=== PATIENT | female | born 1960 | race Caucasian/White ===

== ENCOUNTER 2017-09-17 13:59 | Inpatient (IN) | payer BC ==
[~2017-09-17] VITALS: Ht 172.7 cm; Wt 82.7 kg
--- NOTE | ~2017-09-17 | CN ---
PATIENT NAME:MONIQUE HAWK MEDICAL RECORD: [id number] : 62 LOCATION:D. D.2126 ADMIT DATE: 09/17/17 ACCOUNT: [id number] CONSULTING PHYSICIAN: ALLYSON OTTO MD REFERRING PHYSICIAN: ION HINDS MD DATE OF CONSULTATION: 09/18/2017 CARDIOLOGY CONSULT DIAGNOSES: 1. Palpitations. 2. PVCs - dysrhythmia. 3. Anemia. 4. Hypotension. HISTORY: Mrs. Hawk presents with shortness of breath and palpitations. She was found to be markedly anemic with hemoglobin in the 7 range. Etiology of the anemia is unknown, felt to be possibly GI. She has received 2 units of blood. She feels fine now. Her monitor was only with occasional PVCs. She was scheduled to see us on for the dysrhythmia. She has had no further PVCs since replacement of the blood. PHYSICAL EXAMINATION: GENERAL APPEARANCE: Well-nourished, well-developed, appears stated age. Level of distress, comfortable. PSYCHIATRIC: Mental status, alert, normal affect. Orientation, oriented to time, place and person. EYES: Lids and conjunctiva, noninjected. No discharge, no pallor. ENT: Lips, teeth, gums, normal dentition. Oropharynx, no cyanosis, no pallor. NECK: Carotid arteries, bilateral normal upstroke, no bruits, no thrills. JUGULAR VEINS: No jugular venous pressure or distention. CERVICAL LYMPH NODES: Nontender, nonenlarged. THYROID: Not enlarged. Nontender. No nodules. LUNGS: Respiratory effort, unlabored. CHEST: Normal curvature. No thoracic deformity. No chest wall tenderness. Percussion, resonant. Auscultation, clear. No wheezes, no rales, no rhonchi. CARDIOVASCULAR: Precordial exam, nondisplaced. No heaves or pericardial thrills. Rate and rhythm, regular. Heart sounds, normal S1, normal S2. No S3, no gallop, no rub. Systolic murmur, not heard. Diastolic murmur, not heard. EXTREMITIES: No cyanosis, no edema. Peripheral pulses, full and equal in all extremities, except as noted. No bruits appreciated. ABDOMEN: Soft, nondistended. Normal aorta. No bruit. Nontender. No masses. Liver, nontender, no hepatomegaly. Spleen, nontender, no splenomegaly. MUSCULOSKELETAL: No joint tenderness. No joint swelling. No erythema. NEUROLOGICAL: Normal gait, normal strength, normal tone. SKIN: Warm and dry. At this time, we will get an echocardiogram. Most likely, this is all secondary to the anemia. From a cardiac standpoint, no other workup should be necessary other than the echo unless she has further dysrhythmia or the echo shows structural abnormalities. TRANSINT:[id number] Voice Confirmation ID: [id number] DOCUMENT ID: [id number] CONSULT REPORT [id number] MONIQUE HAWK JEFFREY MD CC: [id number] DICTATION DATE: 09/18/17 1027 CLIENT ADVOCATE: 09/18/17 1335 ADM IN [facility] [address] [place] [address]
--- NOTE | ~2017-09-17 | EC ---
PATIENT:MONIQUE DUMAS DATE OF SERVICE: 09/17/17 SEX: F MEDICAL RECORD: [id number] DATE OF : 62 LOCATION:D.M2 D.212 AGE OF PATIENT: 57 ADMISSION DATE: 09/17/17 REFERRING PHYSICIAN: INTERPRETING PHYSICIAN: ALLYSON FREDERICK MD ECHOCARDIOGRAM REPORT ECHO CHARGES 4 ECHO COMPLETE CLINICAL DIAGNOSIS: PVC'S ECHOCARDIOGRAPHIC MEASUREMENTS (adult normal given) AC root (d.<3.7cm) 3.0 cm LV Septum d (<1.2 cm> 1.2 cm Valve Excursion 1.8 cm LV Septum (systole) 1.6 cm Left Atria (s.<4.0cm> 3.5 cm LVPW d(<1.2cm) 1.2 cm RV (d.<2.3cm) 2.7 cm LVPW (sytole) 2.0 cm LV diastole(<5.6CM) 5.5 cm MV E-F(>70mm/sec) cm LV systole 3.1 cm LVOT Diameter 1.9 cm MV exc.(>10mm) cm Est.ejection fraction (50-75%) % Pericardial Effusion N DOPPLER: LVIT cm/sec A 81.0 cm/sec E 58.0 cm/sec LA cm/sec RVSP 31.0 mmHg LVOT 153 cm/sec AOP1/2T m/s Asc. Ao 209 cm/sec RVOT 89.0 cm/sec RA cm/sec PA 126 cm/sec AV Gradient Peak 17.4 mmHg AV Mean 10.0 mmHg AV Area 2.1 cm MV Gradient Peak 7.1 mmHg MV Mean 3.1 mmHg MV Area cm COMMENTS: Bicycle Assembler: 1 MOSHE VILLAGOMEZOE Lead Bi Developer: 1 Dr. Frederick TAPE# PACS DATE OF SERVICE: 09/18/2017 ECHOCARDIOGRAM FINDINGS: 1. Left ventricular chamber size is within normal limits. Left ventricular systolic function is normal. Overall ejection fraction estimated at 65%. 2. Left atrium, right atrium, and right ventricular chamber sizes are within normal limits. 3. Valvular structures have normal structure and motion. ECHOCARDIOGRAM REPORT [id number] MONIQUE DUMAS 4. Doppler interrogation reveals trace mitral regurgitation, trace tricuspid regurgitation. No other valvular insufficiency or stenosis and pulmonary systolic pressure is normal estimated at 31 mmHg. 5. No evidence of pericardial effusion or left ventricular thrombus. TRANSINT:[id number] Voice Confirmation ID: [id number] DOCUMENT ID: [id number] ALLYSON FREDERICK MD CC: [id number] DICTATION DATE: 09/19/17919 GROCERY SPECIALIST: 09/19/17 1109 DIS IN 09/18/17 [facility] [address] [place] [id number]
[2017-09-17 15:00] LABS: BASOPHILS 0.6 % (0-2); EOSINOPHILS 1.6 % (0-7); HEMATOCRIT 25.8 % (36.0-48.0); HEMOGLOBIN 8.2 g/dL (12-16); IMMATURE GRANULOCYTES 0.3 % (0-5); LYMPHOCYTES 14.1 % (15-50); MCH 28.3 pg (26.0-34.0); MCHC 31.8 g/dL (31.0-37.0); MEAN PLATELET VOLUME 9.5 fL (7.4-10.4); MONOCYTES 8.2 % (2-11); NEUTROPHILS 75.2 % (40-80); PLATELET COUNT 506 10x3/uL (130-400); WBC 10.8 10x3/uL (4.8-10.8)
[2017-09-17 15:13] LABS: INR 0.93 (0.85-1.17); PROTIME 12.1 SECONDS (11.6-15.0)
[2017-09-17 15:14] LABS: D-DIMER-QUANTITATIVE 0.39 ug/mLFEU (0.20-0.54)
[2017-09-17 15:18] LABS: APPEARANCE CLEAR (CLEAR); COLOR YELLOW (YELLOW); SPECIFIC GRAVITY 1.015 (1.005-1.020)
[2017-09-17 15:19] LABS: BILIRUBIN NEGATIVE (NEGATIVE); GLUCOSE NEGATIVE (NEGATIVE); KETONE NEGATIVE (NEGATIVE); NITRITE NEGATIVE (NEGATIVE); PROTEIN NEGATIVE (NEGATIVE); UROBILINOGEN NORMAL (NORMAL)
[2017-09-17 15:34] LABS: ALBUMIN 3.7 g/dL (3.4-5.0); ALKALINE PHOSPHATASE 65 U/L (46-116); ALT (SGPT) 20 U/L (10-68); BILIRUBIN - TOTAL 0.27 mg/dL (0.2-1.3); CALC OSMOLALITY 268 mosm/kg (275-300); CALCIUM 8.4 mg/dL (8.5-10.1); CARBON DIOXIDE 25.8 mmol/L (21.0-32.0); CHLORIDE - SERUM 98 mmol/L (98-107); GLUCOSE 100 mg/dL (74-106); POTASSIUM - SERUM 3.9 mmol/L (3.5-5.1); PROTEIN - SERUM 6.9 g/dL (6.4-8.2); SODIUM 132 mmol/L (136-145); UREA NITROGEN 24 mg/dL (7-18); eGFR NON AFRICAN AMERICAN 61 mL/min (90-120)
[2017-09-17 16:02] LABS: CHOL - HDL RATIO 3.9 ratio (2.3-4.1); CHOLESTEROL, TOTAL 185 mg/dL (0-200); CKMB 0.8 U/L (0.0-3.6); CREATINE KINASE 39 UL (21-215); HDL CHOLESTEROL 47 mg/dL (32-96); LDL CHOLESTEROL 96 mg/dL (0-100); MAGNESIUM - SERUM 1.9 mg/dL (1.8-2.4); THYROID STIMULATING HORMONE 1.22 uIU/mL (0.36-3.74); TRIGLYCERIDE 212 mg/dL (30-200)
[2017-09-17 16:03] LABS: TROPONIN-I < 0.017 ng/mL (0.000-0.060)
[2017-09-17 17:54] LABS: BASOPHILS 0.7 % (0-2); HEMATOCRIT 23.5 % (36.0-48.0); IMMATURE GRANULOCYTES 0.3 % (0-5); LYMPHOCYTES 19.2 % (15-50); MCH 28.4 pg (26.0-34.0); MCHC 31.9 g/dL (31.0-37.0); MEAN PLATELET VOLUME 9.3 fL (7.4-10.4); MONOCYTES 7.1 % (2-11); NEUTROPHILS 70.7 % (40-80); PLATELET COUNT 438 10x3/uL (130-400); RBC 2.64 10x6/uL (4.00-5.40); RDW 17.1 % (11.5-14.5); WBC 11.2 10x3/uL (4.8-10.8)
[2017-09-17 18:02] LABS: HEMOGLOBIN 7.5 g/dL (12-16)
[2017-09-17 20:37] VITALS: Ht 172.7 cm; Wt 82.7 kg
[2017-09-17 21:39] VITALS: BP 116/43
[2017-09-18 03:30] VITALS: BP 97/58
[2017-09-18 07:22] LABS: % SATURATION 5 % (15-55); IRON 22 ug/dl (35-150); TOTAL IRON BIND CAPACITY 380 ug/dl (260-445); UNSAT IRON BIND CAPACITY 358 ug/dl (150-375)
[2017-09-18 08:56] VITALS: BP 147/89
[2017-09-18 09:20] LABS: HEMOGLOBIN 9.5 g/dL (12-16)
[2017-09-18 09:21] LABS: HEMATOCRIT 29.7 % (36.0-48.0)
[2017-09-18] MEDS ORDERED: PLAVIX75 MG PO (13:58)
[2017-09-19 07:25] LABS: FOLATE (FOLIC ACID) - SERUM >20.0 ng/mL (>3.0)
== END 2017-09-18 17:30 | disposition left against medical advice (07) | DRG 812 ==
LOC: D.ER 13:59 → D.M2 19:35
PROVIDERS: Emergency Medicine; Nurse Practitioner Family
DX: D64.9 Anemia, unspecified (principal); K92.2 Gastrointestinal hemorrhage, unspecified; I49.3 Ventricular premature depolarization; I95.9 Hypotension, unspecified; I10 Essential (primary) hypertension; Z86.73 Personal history of transient ischemic attack (TIA), and cerebral infarction without residual deficits

== ENCOUNTER → 2018-06-01 08:24 | Outpatient (CLI) | payer BC ==
[2017-09-17 20:37] VITALS: BMI 27.7
[~2018-06-01 08:24] MED LIST: PLAVIX75 MG PO
== END | disposition home or self-care (01) ==
LOC: D.MRI 08:00
DX: I63.9 Cerebral infarction, unspecified (principal)

== ENCOUNTER → 2018-06-19 10:05 | Outpatient (CLI) | payer BC ==
[2017-09-17 20:37] VITALS: BMI 27.7
== END | disposition home or self-care (01) ==
LOC: D.MRI 10:05
DX: M25.532 Pain in left wrist (principal)

== ENCOUNTER → 2019-06-04 08:15 | Outpatient (CLI) | payer BC ==
[2017-09-17 20:37] VITALS: BMI 27.7
--- NOTE | 2019-06-11 11:41 | ST ---
PATIENT:MONIQUE DUMAS MEDICAL RECORD: [id number] SEX: F LOCATION:[facility] ORDER #: ADMISSION DATE: 06/04/19 AGE OF PATIENT: 59 REFERRING PHYSICIAN: INTERPRETING PHYSICIAN: ALLYSON OTTO MD DATE OF SERVICE: 06/04/2019 Nuclear Stress Test INDICATIONS: Angina, shortness of breath. She was exercised on a standard Godwin protocol for 8 minutes achieving 85% max target heart rate response with 33 mCi of sestamibi injected at peak stress, 11 mCi used previously for rest images. FINDINGS: Gated SPECT reveals preserved ejection fraction at 66% with good wall motion and thickening and brightening throughout all segments. SPECT Imaging: Cardiolite was used as myocardial fusion agent. There is homogeneous uptake throughout all segments at rest and stress with no evidence of inducible ischemia or previous infarction. OVERALL IMPRESSION: 1. This is a normal nuclear stress test with no evidence of inducible ischemia or previous infarction. 2. Gated SPECT reveals a preserved ejection fraction at 66%. In this patient with ongoing symptomatology, the current scan does not suggest the presence of hemodynamically significant coronary artery disease. Evaluate noncardiac etiology of chest pain. TRANSINT:[id number] Voice Confirmation ID: [id number] DOCUMENT ID: [id number] ALLYSON OTTO MD at 1141 CC: CLAUDIA POSEY MD [id number] DICTATION DATE: 06/05/19 1208 LOADING SHOVEL OILER: 06/06/19 0039 DEP CLI 06/04/19 [place] [id number] [place] [id number]
== END | disposition home or self-care (01) ==
LOC: D.HCCARDIO 08:15
PROVIDERS: ATTEND Internal Medicine Interventional Cardiology
DX: I20.9 Angina pectoris, unspecified (principal)